=== PATIENT | female | born 1980 | race Caucasian/White ===

== ENCOUNTER 2018-01-06 15:33 | Emergency (ER) | payer BC ==
[~2018-01-06] VITALS: Ht 172.7 cm; Wt 94.8 kg
[~2018-01-06 15:33] MED LIST: BACTRIM DS TAB1 EACH PO; CIPROFLOXIN HC2.5 M1 OPHTHALMIC; FLEXERIL PO; HYDROCODON-ACE1 EAC7; HYOSCYAMINE0.375 M2 PO; IBUPROFEN 800800 M1 PO; IMITREX 25 MG T25 M1 PO; LEXAPRO 10 MG T10 M1; MEDROLDOSEPACK PO; MIRALAX255 GM PO; NOHOMEMEDICATIONS; NORCO 5-325 TA1 EACH PO; PERCOCET 5-3251 EACH PO; PRENATAL PO; TOBRADEX EYE DRO5 ML OP; ULTRAM 50MG TAB50 MG PO; ZOFRAN4 MG PO; ZYRTEC10 M2 PO
[2018-01-06] MEDS ORDERED: ZANAFLEX4 MG PO (15:47)
[2018-01-06] MEDS ORDERED: TROKENDI XR50 MG PO (15:47)
[2018-01-06] MEDS ORDERED: LIPITOR10 MG PO (15:48)
[2018-01-06] MEDS ORDERED: ARIPIPRAZOLE2 MG PO (15:48)
[2018-01-06] MEDS ORDERED: CYMBALTA20 MG PO (15:48)
[2018-01-06] MEDS ORDERED: VITAMIN D5000 UNIT PO (15:49)
[2018-01-06 16:16] LABS: ABSOLUTE BASOPHILS 0.1 thou/uL (0.0-0.2); ABSOLUTE EOSINOPHILS 0.2 thou/uL (0.0-0.7); ABSOLUTE LYMPHOCYTES 3.9 thou/uL (0.8-5.3); ABSOLUTE MONOCYTES 0.5 thou/uL (0.0-1.2); ABSOLUTE NEUTROPHILS 3.7 thou/uL (1.6-8.1); BASOPHILS 0.6 %; EOSINOPHILS 2.5 %; HEMOGLOBIN 14.3 gm/dL (12.0-15.0); LYMPHOCYTES 46.5 %; MCH 28.4 pg (26.0-34.0); MCV 83.6 fL (80.0-100.0); MONOCYTES 5.7 %; MPV 8.1 fl. (7.2-11.1); NUCLEATED RBCS 0 /100WBC; PLATELET COUNT* 315 thou/uL (150-400); POLYS 44.7 %; RBC 5.03 mil/uL (4.20-5.00); RDW-CV 13.7 % (10.5-14.5); WBC 8.3 thou/uL (4.0-11.0)
[2018-01-06 16:16] LABS: URINE BILIRUBIN NEGATIVE (Negative); URINE BLOOD NEGATIVE (Negative); URINE CLARITY CLEAR; URINE COLOR YELLOW; URINE GLUCOSE-RANDOM NEGATIVE (Negative); URINE KETONES NEGATIVE (Negative); URINE LEUKOCYTES-REFLEX 1+ (Negative); URINE NITRITE-REFLEX NEGATIVE (Negative); URINE PROTEIN NEGATIVE (Negative); URINE SPECIFIC GRAVITY <= 1.005 (1.005-1.030); URINE UROBILINOGEN 0.2 E.U./dl (0.2-1.0)
[2018-01-06 16:23] LABS: BACTERIA-REFLEX 1-9 Few /HPF (None Seen); CASTS None Seen /LPF (None Seen); CRYSTALS None Seen /LPF (None Seen); MUCUS None Seen strn/LPF (None Seen); SQUAMOUS 0-3 Few /LPF (0-3); URINE RBC None Seen /HPF (0-2); URINE WBC-REFLEX 0-5 Rare /HPF (0-5)
[2018-01-06 16:31] LABS: CALCIUM 8.9 mg/dL (8.5-10.1); CREATININE 0.9 mg/dL (0.6-1.3); POTASSIUM 4.1 mmol/L (3.5-5.1)
[2018-01-06 16:36] LABS: ALBUMIN 3.9 g/dL (3.4-5.0); TOTAL BILIRUBIN 0.3 mg/dL (<0.1-1.0); TOTAL PROTEIN 7.6 g/dL (6.4-8.2)
[2018-01-06] MEDS ORDERED: HYDROCODONE-AP1 EAC6 PO (19:19)
[2018-01-06] MEDS ORDERED: PHENERGAN 25 MG25 MG PO (19:19)
[2018-01-06 19:31] VITALS: BP 114/64
[2018-01-07] MEDS ORDERED: NORCO 5-325 TA1 EACH PO (23:30)
[2018-01-07] MEDS ORDERED: PHENERGAN 25 MG25 M1 PO (23:30)
[2018-01-07] MEDS ORDERED: PERCOCET 5-3251 EACH PO (23:49)
== END 2018-01-06 19:20 | disposition home or self-care (01) ==
LOC: M.ERS 15:33
PROVIDERS: Nurse Practitioner
DX: N83.201 Unspecified ovarian cyst, right side (principal); L50.9 Urticaria, unspecified; T50.8X5A Adverse effect of diagnostic agents, initial encounter; F41.9 Anxiety disorder, unspecified; G43.909 Migraine, unspecified, not intractable, without status migrainosus; Z90.711 Acquired absence of uterus with remaining cervical stump; Z91.041 Radiographic dye allergy status; Y92.89 Other specified places as the place of occurrence of the external cause

== ENCOUNTER 2018-01-07 17:21 | Emergency (ER) | payer BC ==
[~2018-01-07] VITALS: Ht 170.2 cm; Wt 94.8 kg
[~2018-01-07 17:21] MED LIST changes: +ARIPIPRAZOLE2 MG PO; +CYMBALTA20 MG PO; +HYDROCODONE-AP1 EAC6 PO; +LIPITOR10 MG PO; +PHENERGAN 25 MG25 MG PO; +TROKENDI XR50 MG PO; +VITAMIN D5000 UNIT PO; +ZANAFLEX4 MG PO
[2018-01-07 17:58] LABS: ABSOLUTE LYMPHOCYTES 3.4 thou/uL (0.8-5.3); ABSOLUTE MONOCYTES 0.8 thou/uL (0.0-1.2); ABSOLUTE NEUTROPHILS 11.8 thou/uL (1.6-8.1); BASOPHILS 0.3 %; EOSINOPHILS 0.2 %; HEMOGLOBIN 13.7 gm/dL (12.0-15.0); LYMPHOCYTES 21.1 %; MCH 28.7 pg (26.0-34.0); MCHC 34.2 g/dL (28.0-37.0); MCV 83.8 fL (80.0-100.0); MONOCYTES 5.1 %; NUCLEATED RBCS 0 /100WBC; PLATELET COUNT* 299 thou/uL (150-400); POLYS 73.3 %; RBC 4.77 mil/uL (4.20-5.00); RDW-CV 13.5 % (10.5-14.5); WBC 16.1 thou/uL (4.0-11.0)
[2018-01-07 18:11] LABS: CALCIUM 8.8 mg/dL (8.5-10.1); POTASSIUM 3.9 mmol/L (3.5-5.1)
[2018-01-07 18:16] LABS: ALBUMIN 3.6 g/dL (3.4-5.0); TOTAL BILIRUBIN 0.2 mg/dL (<0.1-1.0); TOTAL PROTEIN 7.1 g/dL (6.4-8.2)
[2018-01-07 18:36] LABS: URINE BILIRUBIN NEGATIVE (Negative); URINE BLOOD TRACE (Negative); URINE COLOR YELLOW; URINE GLUCOSE-RANDOM NEGATIVE (Negative); URINE KETONES NEGATIVE (Negative); URINE LEUKOCYTES-REFLEX TRACE (Negative); URINE NITRITE-REFLEX NEGATIVE (Negative); URINE PROTEIN NEGATIVE (Negative); URINE SPECIFIC GRAVITY 1.025 (1.005-1.030); URINE UROBILINOGEN 0.2 E.U./dl (0.2-1.0)
[2018-01-07 18:39] LABS: URINE CLARITY HAZY
[2018-01-07 18:50] LABS: BACTERIA-REFLEX None Seen /HPF (None Seen); CASTS None Seen /LPF (None Seen); CRYSTALS None Seen /LPF (None Seen); MUCUS 0-3 Light strn/LPF (None Seen); SQUAMOUS 4-10 Moderate /LPF (0-3); URINE RBC None Seen /HPF (0-2); URINE WBC-REFLEX 0-5 Rare /HPF (0-5)
[2018-01-07] MEDS ORDERED: PHENERGAN 25 MG25 M1 PO (23:30)
[2018-01-07] MEDS ORDERED: NORCO 5-325 TA1 EACH PO (23:30)
[2018-01-07] MEDS ORDERED: PERCOCET 5-3251 EACH PO (23:49)
[2018-01-08 00:26] VITALS: BP 100/59
[2018-01-09] MEDS ORDERED: IBU600 MG PO (17:57)
[2018-01-09] MEDS ORDERED: BENTYL 20 MG TA20 M1 PO (17:57)
[2018-01-09] MEDS ORDERED: ZOFRAN ODT4 MG PO (17:57)
--- NOTE | 2018-01-10 14:29 | EKG ---
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 01/10/18 1429 1431 1431 Richard Moss MD, FAC /EPI
== END 2018-01-08 00:27 | disposition home or self-care (01) ==
LOC: M.ERS 17:21
PROVIDERS: Physician Assistant
DX: N83.01 Follicular cyst of right ovary (principal); F41.9 Anxiety disorder, unspecified; G43.909 Migraine, unspecified, not intractable, without status migrainosus; Z90.711 Acquired absence of uterus with remaining cervical stump; Z91.041 Radiographic dye allergy status

== ENCOUNTER 2018-01-09 14:21 | Emergency (ER) | payer BC ==
[~2018-01-09] VITALS: Ht 170.2 cm; Wt 95.7 kg
[~2018-01-09 14:21] MED LIST changes: +PHENERGAN 25 MG25 M1 PO
[2018-01-09 15:33] LABS: ABSOLUTE BASOPHILS 0.1 thou/uL (0.0-0.2); ABSOLUTE EOSINOPHILS 0.1 thou/uL (0.0-0.7); ABSOLUTE LYMPHOCYTES 3.7 thou/uL (0.8-5.3); ABSOLUTE MONOCYTES 0.6 thou/uL (0.0-1.2); ABSOLUTE NEUTROPHILS 5.9 thou/uL (1.6-8.1); BASOPHILS 0.6 %; EOSINOPHILS 1.2 %; HEMATOCRIT 40.4 % (37.0-47.0); LYMPHOCYTES 35.3 %; MCH 28.9 pg (26.0-34.0); MCHC 34.6 g/dL (28.0-37.0); MCV 83.6 fL (80.0-100.0); MONOCYTES 5.3 %; NUCLEATED RBCS 0 /100WBC; PLATELET COUNT* 297 thou/uL (150-400); POLYS 57.6 %; RBC 4.83 mil/uL (4.20-5.00); RDW-CV 13.5 % (10.5-14.5); WBC 10.3 thou/uL (4.0-11.0)
[2018-01-09 15:40] LABS: ANION GAP 7 mmol/L (7-16); BUN 16 mg/dL (7-18); CALCIUM 9.2 mg/dL (8.5-10.1); CHLORIDE 103 mmol/L (98-107); CO2 25 mmol/L (21-32); CREATININE 0.9 mg/dL (0.6-1.3); GLUCOSE 86 mg/dL (70-99); POTASSIUM 3.3 mmol/L (3.5-5.1); SODIUM 135 mmol/L (136-145)
[2018-01-09 15:53] LABS: ALBUMIN 3.8 g/dL (3.4-5.0); ALKALINE PHOSPHATASE 56 U/L (46-116); NT-PRO BRAIN NAT PEPTIDE 117 pg/mL (<300); SGOT 16 U/L (15-37); SGPT 21 U/L (30-65); TOTAL BILIRUBIN 0.5 mg/dL (<0.1-1.0); TOTAL PROTEIN 7.4 g/dL (6.4-8.2); TROPONIN-I LEVEL <0.06 ng/mL (<0.06)
[2018-01-09] MEDS ORDERED: ZOFRAN ODT4 MG PO (17:57)
[2018-01-09] MEDS ORDERED: BENTYL 20 MG TA20 M1 PO (17:57)
[2018-01-09] MEDS ORDERED: IBU600 MG PO (17:57)
[2018-01-09 18:20] VITALS: BP 128/78
== END 2018-01-09 18:21 | disposition home or self-care (01) ==
LOC: M.ERS 14:21
PROVIDERS: Nurse Practitioner Family
DX: K59.00 Constipation, unspecified (principal); R55 Syncope and collapse; G43.909 Migraine, unspecified, not intractable, without status migrainosus; F41.9 Anxiety disorder, unspecified; Z90.711 Acquired absence of uterus with remaining cervical stump; Z91.041 Radiographic dye allergy status

== ENCOUNTER 2018-05-28 16:58 | Emergency (ER) | payer OTHER, BC ==
[~2018-05-28] VITALS: Ht 172.7 cm; Wt 90.7 kg
[~2018-05-28 16:58] MED LIST changes: +BENTYL 20 MG TA20 M1 PO; +IBU600 MG PO; +ZOFRAN ODT4 MG PO
[2018-05-28 17:23] LABS: URINE BILIRUBIN NEGATIVE (Negative); URINE BLOOD NEGATIVE (Negative); URINE CLARITY CLEAR; URINE COLOR YELLOW; URINE GLUCOSE-RANDOM NEGATIVE (Negative); URINE KETONES NEGATIVE (Negative); URINE LEUKOCYTES-REFLEX TRACE (Negative); URINE NITRITE-REFLEX NEGATIVE (Negative); URINE PROTEIN NEGATIVE (Negative); URINE SPECIFIC GRAVITY >= 1.030 (1.005-1.030); URINE UROBILINOGEN 0.2 E.U./dl (0.2-1.0)
[2018-05-28 17:32] LABS: SQUAMOUS >10 Many /LPF (0-3)
[2018-05-28 17:33] LABS: CASTS None Seen /LPF (None Seen); CRYSTALS None Seen /LPF (None Seen); MUCUS >6 Heavy strn/LPF (None Seen); URINE RBC None Seen /HPF (0-2); URINE WBC-REFLEX 0-5 Rare /HPF (0-5)
[2018-05-28 17:37] LABS: ABSOLUTE EOSINOPHILS 0.1 thou/uL (0.0-0.7); ABSOLUTE LYMPHOCYTES 3.6 thou/uL (0.8-5.3); ABSOLUTE MONOCYTES 0.5 thou/uL (0.0-1.2); ABSOLUTE NEUTROPHILS 2.7 thou/uL (1.6-8.1); BASOPHILS 0.7 %; EOSINOPHILS 2.1 %; HEMATOCRIT 40.1 % (37.0-47.0); HEMOGLOBIN 13.7 gm/dL (12.0-15.0); MCH 28.5 pg (26.0-34.0); MCHC 34.2 g/dL (28.0-37.0); MCV 83.3 fL (80.0-100.0); MONOCYTES 6.8 %; NUCLEATED RBCS 0 /100WBC; PLATELET COUNT* 285 thou/uL (150-400); POLYS 39.4 %; RBC 4.81 mil/uL (4.20-5.00); RDW-CV 13.7 % (10.5-14.5)
[2018-05-28 17:51] LABS: ALBUMIN 3.6 g/dL (3.4-5.0); CALCIUM 8.6 mg/dL (8.5-10.1); CREATININE 0.9 mg/dL (0.6-1.3); POTASSIUM 3.7 mmol/L (3.5-5.1); TOTAL BILIRUBIN 0.3 mg/dL (<0.1-1.0); TOTAL PROTEIN 7.1 g/dL (6.4-8.2)
[2018-05-28] MEDS ORDERED: FLAGYL 250 MG250 MG PO (19:29)
[2018-05-28] MEDS ORDERED: CIPRO500 MG PO (19:30)
[2018-05-28 19:39] VITALS: BP 104/57
== END 2018-05-28 19:41 | disposition home or self-care (01) ==
LOC: M.ERS 16:58
PROVIDERS: Nurse Practitioner Family
DX: N76.0 Acute vaginitis (principal); B96.89 Other specified bacterial agents as the cause of diseases classified elsewhere; N39.0 Urinary tract infection, site not specified; F41.9 Anxiety disorder, unspecified; G43.909 Migraine, unspecified, not intractable, without status migrainosus; Z91.041 Radiographic dye allergy status; Z90.711 Acquired absence of uterus with remaining cervical stump

== ENCOUNTER 2018-07-29 18:57 | Emergency (ER) | payer OTHER, BC ==
[~2018-07-29] VITALS: Ht 172.7 cm; Wt 99.8 kg
[~2018-07-29 18:57] MED LIST changes: +CIPRO500 MG PO; +FLAGYL 250 MG250 MG PO; +KEFLEX500 M1 PO; +NABUMETONE 750750 M1 PO
[2018-07-29 20:34] LABS: URINE BILIRUBIN NEGATIVE (Negative); URINE BLOOD NEGATIVE (Negative); URINE CLARITY CLEAR; URINE COLOR YELLOW; URINE GLUCOSE-RANDOM NEGATIVE (Negative); URINE KETONES NEGATIVE (Negative); URINE LEUKOCYTES-REFLEX NEGATIVE (Negative); URINE NITRITE-REFLEX NEGATIVE (Negative); URINE PROTEIN NEGATIVE (Negative); URINE SPECIFIC GRAVITY 1.015 (1.005-1.030); URINE UROBILINOGEN 0.2 E.U./dl (0.2-1.0)
[2018-07-29 20:41] LABS: ABSOLUTE EOSINOPHILS 0.1 thou/uL (0.0-0.7); ABSOLUTE LYMPHOCYTES 1.6 thou/uL (0.8-5.3); ABSOLUTE MONOCYTES 0.7 thou/uL (0.0-1.2); ABSOLUTE NEUTROPHILS 10.1 thou/uL (1.6-8.1); BASOPHILS 0.4 %; EOSINOPHILS 0.6 %; HEMATOCRIT 40.8 % (37.0-47.0); HEMOGLOBIN 13.8 gm/dL (12.0-15.0); LYMPHOCYTES 12.5 %; MCH 28.2 pg (26.0-34.0); MCHC 33.9 g/dL (28.0-37.0); MCV 83.1 fL (80.0-100.0); MONOCYTES 5.3 %; MPV 7.9 fl. (7.2-11.1); NUCLEATED RBCS 0 /100WBC; PLATELET COUNT* 270 thou/uL (150-400); POLYS 81.2 %; RBC 4.92 mil/uL (4.20-5.00); RDW-CV 13.9 % (10.5-14.5); WBC 12.4 thou/uL (4.0-11.0)
[2018-07-29 20:48] LABS: CALCIUM 8.7 mg/dL (8.5-10.1); POTASSIUM 3.4 mmol/L (3.5-5.1)
[2018-07-29 20:52] LABS: ALBUMIN 3.9 g/dL (3.4-5.0); TOTAL BILIRUBIN 0.4 mg/dL (<0.1-1.0); TOTAL PROTEIN 7.4 g/dL (6.4-8.2)
[2018-07-29] MEDS ORDERED: AMOXICILLIN 50500 MG PO (21:05)
[2018-07-29 21:16] VITALS: BP 125/68
== END 2018-07-29 21:17 | disposition home or self-care (01) ==
LOC: M.ERS 18:57
PROVIDERS: Nurse Practitioner Family
DX: J02.9 Acute pharyngitis, unspecified (principal); R11.10 Vomiting, unspecified; G43.909 Migraine, unspecified, not intractable, without status migrainosus; F41.9 Anxiety disorder, unspecified; Z88.1 Allergy status to other antibiotic agents; Z91.041 Radiographic dye allergy status; Z90.710 Acquired absence of both cervix and uterus

== ENCOUNTER 2018-10-29 20:00 | Emergency (ER) | payer OTHER, BC ==
[~2018-10-29] VITALS: Ht 172.7 cm; Wt 96.6 kg
[~2018-10-29 20:00] MED LIST changes: +AMOXICILLIN 50500 MG PO
[2018-10-29 20:08] VITALS: BP 130/80
[2018-10-29] MEDS ORDERED: DOXYCYCLINE 10100 MG PO (20:19)
[2018-10-29] MEDS ORDERED: NORCO 7.5-3251 EACH PO (20:19)
== END 2018-10-29 20:29 | disposition home or self-care (01) ==
LOC: M.ERS 20:00
DX: L03.316 Cellulitis of umbilicus (principal); G43.909 Migraine, unspecified, not intractable, without status migrainosus; F41.9 Anxiety disorder, unspecified; Z90.711 Acquired absence of uterus with remaining cervical stump; Z98.890 Other specified postprocedural states; Z90.49 Acquired absence of other specified parts of digestive tract; Z88.1 Allergy status to other antibiotic agents; Z91.041 Radiographic dye allergy status

== ENCOUNTER 2019-01-11 17:24 | Emergency (ER) | payer OTHER, BC ==
[~2019-01-11] VITALS: Ht 170.2 cm; Wt 94.8 kg
[~2019-01-11 17:24] MED LIST changes: +DOXYCYCLINE 10100 MG PO; +NORCO 7.5-3251 EACH PO
[2019-01-11 17:30] VITALS: BP 154/111
[2019-01-11] MEDS ORDERED: ONDANSETRON HCL4 M2 PO (17:47)
[2019-01-11] MEDS ORDERED: ATIVAN0.5 M1 PO (17:47)
[2019-01-11] MEDS ORDERED: ASA81BEC PO (17:55)
[2019-01-11] MEDS ORDERED: CRESTOR40 MG PO (17:55)
== END 2019-01-11 18:36 | disposition home or self-care (01) ==
LOC: M.ERS 17:24
DX: F41.9 Anxiety disorder, unspecified (principal); F32.9 Major depressive disorder, single episode, unspecified; G43.909 Migraine, unspecified, not intractable, without status migrainosus; Z88.1 Allergy status to other antibiotic agents; Z91.041 Radiographic dye allergy status; Z90.711 Acquired absence of uterus with remaining cervical stump